=== PATIENT | female | born 1985 | race Two or more races ===

== ENCOUNTER 2016-12-12 13:02 | Emergency (ER) | payer MEDICAID ==
[~2016-12-12] VITALS: Ht 172.7 cm; Wt 70.0 kg
[2016-12-12] MEDS ORDERED: IBUPROFEN 600MG TABLET PO ONE (15:15)
[2016-12-12] MEDS ORDERED: ACETAMINOPHEN 325MG TABLET PO ONE (15:15)
[2016-12-12 15:27] LABS: CHLORIDE 108 mEq/L (98-107)
[2016-12-12 15:29] LABS: BASOPHILS % 0.8 % (0.0-2.0); EOSINOPHILS % 1.9 % (0.0-5.0); HEMATOCRIT. 34.5 % (36.0-48.0); HEMOGLOBIN. 11.7 g/dL (12.0-16.0); MEAN CORPUSCULAR HEMOGLOBIN 30.6 pg (28.0-32.0); MEAN CORPUSCULAR VOLUME 90.4 fL (81.0-99.0); MEAN PLATELET VOLUME 9.8 fl (7.4-10.4); MONOCYTES % 8.9 % (2.0-8.0); NEUTROPHILS % 64.4 % (40.0-76.0); PLATELET 207 x1000/uL (130-400); RED BLOOD CELL COUNT 3.81 mill/uL (4.2-5.4)
[2016-12-12 15:32] LABS: CARBON DIOXIDE 28 mEq/L (21-32)
[2016-12-12 18:20] VITALS: BP 119/57
== END 2016-12-12 18:20 | disposition home or self-care (01) ==
LOC: ER 13:38
DX: R19.7 Diarrhea, unspecified (principal); R11.2 Nausea with vomiting, unspecified; N83.209 Unspecified ovarian cyst, unspecified side
CPT/HCPCS: 36415; 76856; 80048; 81025; 85025; 86850; 86900; 99285